=== PATIENT | male | born 1970 | race Caucasian/White ===

== ENCOUNTER 2021-09-05 22:03 | Observation (INO) ==
[2021-09-05 22:56] LABS: Influenza A virus by PCR Negative (Neg); Influenza B virus by PCR Negative (Neg); RSV by PCR Negative (Neg)
[2021-09-05 23:45] LABS: Basophils # (auto) 0.02 K/uL (0-0.2); Basophils % (auto) 0.3 %; Eosinophils # (auto) 0.01 K/uL (0-0.5); Eosinophils % (auto) 0.2 %; Hematocrit (blood only) 47.1 % (42-52); Hemoglobin 15.9 g/dL (14.0-18.0); Immature Granulocytes # (auto) 0.01 K/uL (0.00-0.02); Immature Granulocytes % (auto) 0.2 %; Lymphocytes # (auto) 1.74 K/uL (1.2-3.4); Lymphocytes % (auto) 28.6 %; Mean Corpuscular Hemoglobin 30.9 pg (25-34); Mean Corpuscular Hgb Conc 33.8 g/dL (32-36); Mean Corpuscular Volume 91.5 fL (80-100); Monocytes # (auto) 0.49 K/uL (0.11-0.59); Neutrophils # (auto) 3.82 K/uL (1.4-6.5); Neutrophils % (auto) 62.7 %; Platelet Count 196 K/uL (130-400); RDW Coefficient of Variation 13.2 % (11.5-14.5); RDW Standard Deviation 44.2 fL (36.4-46.3); Red Blood Count 5.15 M/uL (4.7-6.1); White Blood Count 6.09 K/uL (4.8-10.8)
[2021-09-06 00:06] LABS: Alanine Aminotransferase 53 (12-78); Albumin Level 3.5 gm/dl (3.4-5.0); Aspartate Aminotransferase 41 U/L (15-37); BUN Creatinine Ratio 10.1 (10-20); Blood Urea Nitrogen 16 mg/dl (7-18); Calcium 8.7 mg/dl (8.5-10.1); Carbon Dioxide 29 mmol/L (21-32); Chloride 101 mmol/L (98-107); Creatinine Clr Calc Pharmacy 67.8 ml/min; Est GFR (African American) 55.7 ml/min; Est GFR (Non-African American) 48.1 ml/min; Glucose 104 mg/dl (70-99); Potassium 3.8 mmol/L (3.5-5.1); Sodium 136 mmol/L (136-145)
[2021-09-06 00:11] LABS: Albumin Globulin Ratio 0.9 (0.9-2); Alkaline Phosphatase 80 U/L (45-117); Bilirubin,Total 0.4 mg/dl (0.2-1); Globulin 4.1 gm/dl (2.5-4.0); Total Protein 7.6 gm/dl (6.4-8.2); Troponin I < 0.015 ng/ml (0-0.045)
[2021-09-06] MEDS ORDERED: dexAMETHasone**PF** 10 MG/ML VIAL PO ONE (00:37)
--- NOTE | 2021-09-06 00:58 | Emergency Department Note ---
Impression & Plan Pneumonia due to 2019-nCoV, Hypoxia ED Provider Note NAME: JOSE SOUZA AGE: 51 SEX: M : 1970 ARRIVES VIA: Walk-In INFORMANT: Patient ED PROVIDER(S): [facility] Campbell DO CHIEF COMPLAINT: Shortness of breath HPI: Patient is a 51-year-old male who presents the ER for upper respiratory symptoms. Symptoms started initially 3 to 4 days ago. He has a cough congestion and shortness of breath which is worsening. He admits to nausea. Daughter has been sick with same symptoms. He is not vaccinated. Denies any chest pain belly pain. No dysuria urgency or frequency. No other exacerbating or remitting factors with the exception of palpably around makes it worse. ROS: See above HPI for pertinent positives & negatives. A total of 10 systems reviewed and were otherwise negative. PAST MEDICAL HISTORY:See Below PAST SURGICAL HISTORY:See Below FAMILY HISTORY:See Below SOCIAL HISTORY:See Below HOME MEDICATIONS:See Below ALLERGIES:See Below VITALS:See Below PHYSICAL EXAMINATION: GENERAL: Sitting up in bed, alert, disheveled, slightly ill-appearing, pers istent cough EYE EXAM: normal conjunctiva. OROPHARYNX: no exudate, no erythema, lips, buccal mucosa, and tongue normal and mucous membranes are moist NECK: supple, no nuchal rigidity, no adenopathy, non-tender LUNGS: Clear to auscultation. Normal chest wall mechanics HEART: no murmurs, S1 normal and S2 normal ABDOMEN: abdomen soft, non-tender, normo-active bowel sounds, no masses, no rebound or guarding. UPPER EXTREMITIES: upper extremities are grossly normal. LOWER EXTREMITIES: No pitting edema. NEURO EXAM: Normal sensorium, cranial nerves II-XII grossly intact, normal speech, no gross weakness of arms, no gross weakness of legs. MEDICAL DECISION MAKING: Patient is a 51-year-old male who presents the ER for the upper respiratory symptoms. IV was established blood work was obtained. He was found to be Covid positive. Labs show no significant leukocytosis or anemia. BMP with a creatinine 1.6. LFTs and troponin was unremarkable. Influenza and RSV were negative. EKG was unremarkable. Chest x-ray with bilateral infiltrates. He was given Decadron fluids and updated bedside. With just mild ambulation he drops to 88% very quickly. Patient was placed on nasal cannula 2 L. Discussed with hospitalist for further evaluation. Triage Nursing notes reviewed. Limited review of prior medical records performed Vital Signs: reviewed and remarkable for hypoxia Differential diagnosis: Differential diagnoses includes but is not limited to pneumonia, bronchitis, COPD/Asthma exacerbation, pneumothorax, pulmonary embolism, congestive heart failure, acute coronary syndrome ER treatment provided: See below Diagnostics interpreted by me: ECG: Sinus rhythm rate 91 Normal axis No PVCs QTC 420 Cardiac Monitoring: An order was placed for continuous cardiac monitoring. The monitor shows a rate of 90 with sinus rhythm. Laboratory studies: As stated above and show below. Imaging studies: Chest x-ray shows bilateral infiltrates Consultation(s): Discussed with hospitalist for further evaluation Procedures: none Past Med/Surg History Medical History (Updated 09/06/21 @ 00:58 by [facility] Campbell DO) Inguinal hernia Surgical History (Updated 01/23/20 @ 11:29 by RONI Springer) H/O inguinal hernia repair Social History Smoking Status: Never smoker Preferred Language: German Feels Safe at Home: Yes Allergies Allergies Allergy/AdvReac Type Severity Reaction Status Date / Time morphine AdvReac Intermediate PANICS, Verified 09/06/21 00:30 LOWERS BP ANESTHETICS AdvReac Intermediate LOWERS BP. Uncoded 09/06/21 00:30 Home Meds Home Medications Medication Instructions Recorded Confirmed testosterone cypionate 200 mg/mL 200 mg IM 2XWK 06/18/19 09/06/21 intramuscular kit anastrozole 1 mg tablet 1 mg PO 2XWK 09/06/21 09/06/21 ascorbic acid (vitamin C) 1,000 mg 5 g PO DAILY 09/06/21 09/06/21 tablet (Vitamin C) cholecalciferol (vitamin D3) 125 250 mcg PO DAILY 09/06/21 09/06/21 mcg (5,000 unit) tablet (Vitamin D3) thyroid (pork) 120 mg tablet 120 mg PO DAILYBB 09/06/21 09/06/21 (Norman Thyroid) Results & Data (ED) Vital Signs Vital Signs - 24 hr 09/05/21 22:09 09/06/21 00:08 09/06/21 00:10 Temperature 36.9 C Temperature Source Temporal Artery Scan Pulse Rate 105 H Pulse Rate [Right] 92 H Pulse Rhythm Regular Pulse Rhythm [Right] Regular Pulse Strength Normal Pulse Strength [Right] Normal Respiratory Rate 20 16 Respiratory Effort / Characteristics Non-Labored Spontaneous Non-Labored Spontaneous Respiratory Depth Normal Normal Blood Pressure 105/65 Blood Pressure [Right Arm] 116/71 Blood Pressure Mean 78 Blood Pressure Mean [Right Arm] 86 Blood Pressure Position Sitting Pulse Oximetry 92 94 Oxygen Delivery Method Room Air Nasal Cannula Room Air Oxygen Flow Rate 2 Sepsis Recent Fever Within 48 Hours No Sepsis New/Unexplained Change in Mental Status N/A Sepsis Action Taken by Nursing No Action Required Laboratory Data Result diagrams: 09/05/21 23:35 09/05/21 23:35 Lab Results 09/05/21 09/05/21 09/05/21 Range/Units 22:15 23:35 23:35 WBC 6.09 (4.8-10.8) K/uL RBC 5.15 (4.7-6.1) M/uL Hgb 15.9 (14.0-18.0) g/dL Hct 47.1 (42-52) % MCV 91.5 (80-100) fL MCH 30.9 (25-34) pg MCHC 33.8 (32-36) g/dL RDW Std Deviation 44.2 (36.4-46.3) fL RDW Coeff of Micaela 13.2 (11.5-14.5) % Plt Count 196 (130-400) K/uL MPV 10.0 (7.4-10.4) fL Immature Gran % (Auto) 0.2 % Neut % (Auto) 62.7 % Lymph % (Auto) 28.6 % [place] % (Auto) 8.0 % Eos % (Auto) 0.2 % Baso % (Auto) 0.3 % Neut # (Auto) 3.82 (1.4-6.5) K/uL Lymph # (Auto) 1.74 (1.2-3.4) K/uL [place] # (Auto) 0.49 (0.11-0.59) K/uL Eos # (Auto) 0.01 (0-0.5) K/uL Baso # (Auto) 0.02 (0-0.2) K/uL Immature Gran # (Auto) 0.01 (0.00-0.02) K/uL Sodium 136 (136-145) mmol/L Potassium 3.8 (3.5-5.1) mmol/L Chloride 101 (98-107) mmol/L Carbon Dioxide 29 (21-32) mmol/L Anion Gap 6.0 (3-11) BUN 16 (7-18) mg/dl Creatinine 1.62 H (0.6-1.4) mg/dl Est Cr Clr Drug Dosing 67.8 ml/min Est GFR ( Amer) 55.7 ml/min Est GFR (Non-Af Amer) 48.1 ml/min BUN/Creatinine Ratio 10.1 (10-20) Glucose 104 H (70-99) mg/dl Calcium 8.7 (8.5-10.1) mg/dl Magnesium 2.1 (1.8-2.4) mg/dl Total Bilirubin 0.4 (0.2-1) mg/dl AST 41 H (15-37) U/L ALT 53 (12-78) Alkaline Phosphatase 80 (45-117) U/L Troponin I < 0.015 (0-0.045) ng/ml Total Protein 7.6 (6.4-8.2) gm/dl Albumin 3.5 (3.4-5.0) gm/dl Globulin 4.1 H (2.5-4.0) gm/dl Albumin/Globulin Ratio 0.9 (0.9-2) TSH 4.320 (0.300-4.500) uIu/ml SARS-CoV-2 (PCR) POSITIVE A* (Negative) Influenza Type A (PCR) Negative (Neg) Influenza Type B (PCR) Negative (Neg) RSV (RT-PCR) Negative (Neg) Administered Medications Discontinued Medications Dexamethasone Sodium Phosphate (DexamethasonePf 10 Mg/Ml Vial) 6 mg PO NOW ONE Stop: 09/06/21 00:38 Last Admin: 09/06/21 00:51 Dose: 6 mg Documented by: [id number] Discharge Plan Visit Data Chief Complaint: Cough Stated Complaint: COUGH, FEVER ED Provider: Mt Campbell Discharge Problem: Pneumonia due to 2019-nCoV, Hypoxia Forms Stand Alone Forms: My [facility] Prescriptions Prescriptions: No Action testosterone cypionate 200 mg/mL kit 200 mg IM 2XWK RF: 0 anastrozole 1 mg tablet 1 mg PO 2XWK RF: 0 thyroid (pork) [Norman Thyroid] 120 mg tablet 120 mg PO DAILYBB RF: 0 ascorbic acid (vitamin C) [Vitamin C] 1,000 mg Tablet 5 g PO DAILY RF: 0 cholecalciferol (vitamin D3) [Vitamin D3] 125 mcg (5,000 unit) Tablet 250 mcg PO DAILY RF: 0 Referrals Referrals: Manuelito Rodriguez MD [Outside Practitioners] -
[2021-09-06] MEDS ORDERED: NSS + 20MEQ KCL 20 MEQ/1,000 ML BAG IV ONE (01:11)
[2021-09-06] MEDS ORDERED: LORazepam 0.25 MG/0.5 ML VIAL IV PRN (01:34)
--- NOTE | 2021-09-06 01:34 | History & Physical Report ---
Date of Service September 06, 2021 Assessment & Plan (1) Pneumonia due to 2019-nCoV: Plan: Severe disease given lowest O2 sats of 90% on room air documented at the ER Mild COPD as per outpatient PFTs ARF secondary to illness Hypothyroidism, euthyroid as of today's TSH Sex hormone abnormalities secondary to hypothyroidism as per on replacement Rx Medical telemetry Decadron and Remdesivir for severe COVID-19 pneumonia. (Patient was counseled regarding potential adverse effects from Remdesivir therapy and provided with patient education sheet.) Pulmonary consult if without improvement. Baseline UA, monitor creatinine response to IVF DVT prophylaxis per Heparin subcu Full code Patient requesting updates from providers. Ms. Ashley Grimaldo, contact #[phone]. Text document was generated using [employer] voice recognition software. It may contain grammatical or spelling errors. Kindly contact undersigned for clarification of any documentation item in question. History of Present Illness Chief Complaint: Cough, congestion Primary Care Provider: Dr. Patricia Holloway History obtained from patient, family, and records. Medical history significant for mild COPD as per records, hypothyroidism. Few days history of dry cough, congestion with shortness of breath. No chest pain as per patient. Headache from coughing as per patient. Some nausea. Poor appetite. Sick contacts at home patient has not received COVID-19 vaccination. Lowest O2 sats upon arrival at the ER was 90% on room air. Decadron given at the ER. 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 Allergies Allergy/AdvReac Type Severity Reaction Status Date / Time morphine AdvReac Intermediate PANICS, Verified 09/06/21 00:30 LOWERS BP Home Medications Medication Instructions Recorded Confirmed Type testosterone cypionate 200 mg/mL 200 mg IM 2XWK 06/18/19 09/06/21 History intramuscular kit anastrozole 1 mg tablet 1 mg PO 2XWK 09/06/21 09/06/21 History ascorbic acid (vitamin C) 1,000 mg 5 g PO DAILY 09/06/21 09/06/21 History tablet (Vitamin C) cholecalciferol (vitamin D3) 125 250 mcg PO DAILY 09/06/21 09/06/21 History mcg (5,000 unit) tablet (Vitamin D3) guaifenesin 200 mg tablet 200 mg PO TID PRN #21 tab 09/06/21 Rx prednisone 20 mg tablet 40 mg PO DAILY 3 Days #6 tab 09/06/21 Rx thyroid (pork) 120 mg tablet 120 mg PO DAILYBB 09/06/21 09/06/21 History ([place] Thyroid) Past Med/Surg History Medical History (Updated 09/06/21 @ 14:57 by Rachael Lange MD) Inguinal hernia Surgical History (Updated 01/23/20 @ 11:29 by RONI Springer) H/O inguinal hernia repair Social History Smoking Status: Never smoker Second Hand Exposure: Yes (Expose through younger years.); Tobacco Cessation Education Requested by Patient: No Hx Alcohol Use: No Hx Substance Use: No Preferred Language: Occitan Communication Ability: Effective Marble Helper Required: No Beliefs That Will Affect Care: Catholic Catholic Beliefs: Yazidism Current Living Situation: Spouse and Family Other Information That Helps Us Care for You: No Feels Safe at Home: Yes Assistive Devices: None Review of Systems Review of Systems: As per HPI, all 10 systems reviewed, all other ROS negative Physical Exam Physical Exam: GENERAL: Slightly uncomfortable, anxious, obese, no respiratory distress SKIN: Normal color, warm HEENT: Alopecia, [place] palpebral conjunctivae, no ptosis, dry buccal mucosa NECK : Supple, short neck, no tenderness CHEST : Decreased breath sounds, no tenderness HEART : RRR, no obvious murmurs ABDOMEN: Some distention, nontender EXTREMITIES : Minimal LE swelling, no LE tenderness, no other conspicuous deformities noted NEUROLOGIC : Coherent, no facial asymmetry, no other gross focality Results & Data Results & Data ([facility]) Vital Signs (Past 12 Hours) Vital Signs Temp Pulse Pulse Resp BP BP Pulse Ox 09/06/21 00:08 92 H 16 116/71 94 09/05/21 22:09 36.9 C 105 H 20 105/65 92 Laboratory Results Laboratory Results WBC 6.09 K/uL (4.8-10.8) 09/05/21 23:35 RBC 5.15 M/uL (4.7-6.1) 09/05/21 23:35 Hgb 15.9 g/dL (14.0-18.0) 09/05/21 23:35 Hct 47.1 % (42-52) 09/05/21 23:35 MCV 91.5 fL (80-100) 09/05/21 23:35 MCH 30.9 pg (25-34) 09/05/21 23:35 MCHC 33.8 g/dL (32-36) 09/05/21 23:35 RDW Std Deviation 44.2 fL (36.4-46.3) 09/05/21 23:35 RDW Coeff of Micaela 13.2 % (11.5-14.5) 09/05/21 23:35 Plt Count 196 K/uL (130-400) 09/05/21 23:35 MPV 10.0 fL (7.4-10.4) 09/05/21 23:35 Immature Gran % (Auto) 0.2 % 09/05/21 23:35 Neut % (Auto) 62.7 % 09/05/21 23:35 Lymph % (Auto) 28.6 % 09/05/21 23:35 [place] % (Auto) 8.0 % 09/05/21 23:35 Eos % (Auto) 0.2 % 09/05/21 23:35 Baso % (Auto) 0.3 % 09/05/21 23:35 Neut # (Auto) 3.82 K/uL (1.4-6.5) 09/05/21 23:35 Lymph # (Auto) 1.74 K/uL (1.2-3.4) 09/05/21 23:35 [place] # (Auto) 0.49 K/uL (0.11-0.59) 09/05/21 23:35 Eos # (Auto) 0.01 K/uL (0-0.5) 09/05/21 23:35 Baso # (Auto) 0.02 K/uL (0-0.2) 09/05/21 23:35 Immature Gran # (Auto) 0.01 K/uL (0.00-0.02) 09/05/21 23:35 Sodium 136 mmol/L (136-145) 09/05/21 23:35 Potassium 3.8 mmol/L (3.5-5.1) 09/05/21 23:35 Chloride 101 mmol/L (98-107) 09/05/21 23:35 Carbon Dioxide 29 mmol/L (21-32) 09/05/21 23:35 Anion Gap 6.0 (3-11) 09/05/21 23:35 BUN 16 mg/dl (7-18) 09/05/21 23:35 Creatinine 1.62 mg/dl (0.6-1.4) H 09/05/21 23:35 Est Cr Clr Drug Dosing 67.8 ml/min 09/05/21 23:35 Est GFR ( Amer) 55.7 ml/min 09/05/21 23:35 Est GFR (Non-Af Amer) 48.1 ml/min 09/05/21 23:35 BUN/Creatinine Ratio 10.1 (10-20) 09/05/21 23:35 Glucose 104 mg/dl (70-99) H 09/05/21 23:35 Calcium 8.7 mg/dl (8.5-10.1) 09/05/21 23:35 Total Bilirubin 0.4 mg/dl (0.2-1) 09/05/21 23:35 AST 41 U/L (15-37) H 09/05/21 23:35 ALT 53 (12-78) 09/05/21 23:35 Alkaline Phosphatase 80 U/L (45-117) 09/05/21 23:35 Troponin I < 0.015 ng/ml (0-0.045) 09/05/21 23:35 Total Protein 7.6 gm/dl (6.4-8.2) 09/05/21 23:35 Albumin 3.5 gm/dl (3.4-5.0) 09/05/21 23:35 Globulin 4.1 gm/dl (2.5-4.0) H 09/05/21 23:35 Albumin/Globulin Ratio 0.9 (0.9-2) 09/05/21 23:35 SARS-CoV-2 (PCR) POSITIVE (Negative) A* 09/05/21 22:15 Influenza Type A (PCR) Negative (Neg) 09/05/21 22:15 Influenza Type B (PCR) Negative (Neg) 09/05/21 22:15 RSV (RT-PCR) Negative (Neg) 09/05/21 22:15 Diagnostic Findings Chest x-ray as per my interpretation bilateral infiltrates EKG as per my interpretation : rate 90, NSR, normal axis, no ischemia
[2021-09-06 01:36] LABS: Magnesium 2.1 mg/dl (1.8-2.4)
[2021-09-06] MEDS ORDERED: REMDESIVIR 200 MG in SODIUM CHLORIDE 0.9% 210 ML IV ONE (02:00)
[2021-09-06] MEDS ORDERED: IPRATROPIUM BROMIDE NEB SOLN 0.02% 2.5 ML VIAL INH PRN (02:45)
[2021-09-06] MEDS ORDERED: ACETAMINOPHEN 325 MG TAB PO PRN (02:45)
[2021-09-06] MEDS ORDERED: LEVALBUTEROL 1.25MG/0.5ML NEB INH PRN (02:45)
[2021-09-06] MEDS ORDERED: PROMETHAZINE HCL 12.5 MG in SODIUM CHLORIDE 0.9% 50 ML IV PRN (02:45)
[2021-09-06] MEDS ORDERED: XOPENEX/ATROVENT 1.25mg/0.5MG NEB COMBO NEB PRN (02:45)
[2021-09-06] MEDS: SODIUM CHLORIDE 0.9% 10ML FLUSH IV SCH ×2 (04:33→04:34)
[2021-09-06 06:08] LABS: Basophils # (auto) 0.01 K/uL (0-0.2); Basophils % (auto) 0.2 %; Hematocrit (blood only) 47.6 % (42-52); Hemoglobin 15.8 g/dL (14.0-18.0); Immature Granulocytes # (auto) 0.01 K/uL (0.00-0.02); Immature Granulocytes % (auto) 0.2 %; Lymphocytes # (auto) 0.89 K/uL (1.2-3.4); Lymphocytes % (auto) 16.5 %; Mean Corpuscular Hemoglobin 30.2 pg (25-34); Mean Corpuscular Hgb Conc 33.2 g/dL (32-36); Mean Corpuscular Volume 90.8 fL (80-100); Mean Platelet Volume 10.3 fL (7.4-10.4); Monocytes # (auto) 0.24 K/uL (0.11-0.59); Monocytes % (auto) 4.5 %; Neutrophils # (auto) 4.24 K/uL (1.4-6.5); Neutrophils % (auto) 78.6 %; Platelet Count 195 K/uL (130-400); RDW Coefficient of Variation 13.3 % (11.5-14.5); RDW Standard Deviation 44.1 fL (36.4-46.3); Red Blood Count 5.24 M/uL (4.7-6.1); White Blood Count 5.39 K/uL (4.8-10.8)
[2021-09-06] MEDS: HEPARIN SOD 5,000 UNIT/0.5 ML VIAL SQ SCH ×2 (06:15→14:20)
[2021-09-06] MEDS ORDERED: ARMOUR THYROID 30 MG TAB PO SCH (06:30)
[2021-09-06 06:47] LABS: Albumin Globulin Ratio 0.8 (0.9-2); Albumin Level 3.3 gm/dl (3.4-5.0); BUN Creatinine Ratio 10.9 (10-20); Bilirubin,Total 0.4 mg/dl (0.2-1); C Reactive Protein 2.3 mg/dl (0-0.29); Creatinine Clr Calc Pharmacy 73.7 ml/min; Est GFR (African American) 61.7 ml/min; Est GFR (Non-African American) 53.2 ml/min; Potassium 4.6 mmol/L (3.5-5.1); Total Protein 7.3 gm/dl (6.4-8.2)
--- NOTE | 2021-09-06 07:53 | XRay Report ---
XR chest 2V PA/lateral CLINICAL HISTORY: Cough. Evaluate for pneumonia. COMPARISON STUDY: No previous studies for comparison. FINDINGS: No pneumothorax or pleural effusion is present. Note is made of mild cardiomegaly. There is no evidence for pulmonary edema. Patchy bilateral airspace opacities are present. IMPRESSION: Patchy bilateral airspace opacities which favor viral pneumonia. Radiographic follow-up to ensure resolution is recommended. ACT 112: Negative or not required by law. Electronically signed by: Brooks Rogel M.D. 09/06/2021 7:52 AM
--- NOTE | 2021-09-06 14:50 | Hospitalist Progress Note ---
Date of Service September 06, 2021 Assessment & Plan (1) Pneumonia due to 2019-nCoV: Plan: Patient said the reason he came to the hospital was for headache He said he did not have any upper respiratory infection on presentation He had COVID-19 before about 9 months ago Unvaccinated for COVID-19 Tested positive for COVID-19 on admission Influenza A & B and RSV are negative CXR showed Patchy bilateral airspace opacities which favor viral pneumonia. He was started on dexamethasone and remdesivir on admission Mild elevated inflammatory markers such as C-reactive protein 2.3 Currently denies any symptom Saturated fine on room air 2 step exercise done and pt does not require any oxygen supplement Patient very anxious to go home (2) Headache: Plan: Patient said after receiving steroid, his headache improved significantly Will give prednisone for 3 days post discharge (3) Elevated serum creatinine: Plan: NATHALIA We do not have any baseline creatinine level, reviewed outpatient document no prior creatinine level noted Creatinine on admission 1.6, received IV fluid now creatinine 1.49 Patient was advised to avoid nephrotoxic agent such as NSAID Check BMP in 1 week (4) Thyroid disease: Plan: Hypothyroidism TSH within normal limit Continue thyroid supplement On testosterone supplement therapy DVT prophylaxis on heparin subcu CODE STATUS full code Disposition Spoke to over the phone and provided with updates Discharge home today Admission and Anticipated Discharge Date Admission Date: September 06, 2021 Subjective Patient was seen and examined for follow-up of COVID-19 Sitting at the edge of the bed with no acute distress. 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 Review of Systems Review of Systems: All systems reviewed & are unremarkable except as noted in Subjective Physical Exam Physical Exam: General- No acute distress Head- atraumatic Eyes- PERRL, EOMI, ENT- oropharynx clear Neck- supple, no JVD Lungs- clear to auscultation Heart- regular rhythm; no murmur Abdomen- normal bowel sounds, soft, nontender Extremities- no calf tenderness Neuro- alert, oriented x 3; PERRL, EOMI; no facial palsy; no dysarthria Skin- warm & dry Results & Data Results & Data ([facility]) Vital Signs (Past 12 Hours) Vital Signs Temp Pulse Resp BP BP Pulse Ox 09/06/21 12:52 36.6 C 72 18 114/71 93 09/06/21 11:45 73 18 98/64 L 93 09/06/21 10:09 78 16 102/80 94 09/06/21 05:45 69 16 109/69 96 09/06/21 04:41 69 16 102/69 96 09/06/21 03:04 82 16 98/57 L 98
--- NOTE | 2021-09-06 15:54 | Electrocardiogram Report ---
Test Reason : Blood Pressure : / mmHG Vent. Rate : 091 BPM Atrial Rate : 091 BPM P-R Int : 158 ms QRS Dur : 082 ms QT Int : 342 ms P-R-T Axes : 041 029 052 degrees QTc Int : 420 ms Normal sinus rhythm Normal ECG No previous ECGs available Confirmed by Bill Mcwilliams ([id number]) on 09/06/2021 3:54:29 PM Referred By: REFERRED SELF Confirmed By:Bill Mcwilliams
[2021-09-06 18:27] LABS: SARS CoV2 RNA(COVID-19) InHosp POSITIVE (Negative)
[2021-09-07] MEDS ORDERED: dexAMETHasone 6 MG in SYRINGE 0 ML IV SCH (09:00)
[2021-09-07] MEDS ORDERED: REMDESIVIR 100 MG in SODIUM CHLORIDE 0.9% 230 ML IV SCH (12:00)
[2021-09-07] MEDS ORDERED: SODIUM CHLORIDE 0.9% 10ML FLUSH IV SCH (13:00)
== END 2021-09-06 17:45 | disposition home or self-care (01) ==
LOC: ED 22:03 → INTOOBSV 09-06 01:37 → EDINP 09-06 01:37 → 2W 09-06 12:20